=== PATIENT | female | born 1940 | race Caucasian/White ===

== ENCOUNTER 2017-01-27 10:21 | Outpatient (CLI) | payer OTHER ==
[~2017-01-27 10:21] MED LIST: AMITRIPTYLINE H25 MG PO; COUMADIN2.5 MG PO; COUMADIN5 MG PO; HIPREX1 GM PO; JANUVIA25 MG; LIPITOR40 MG PO; LOPRESSOR25 MG PO; LOTEMAX0.5 %; METFORMIN HCL500 MG PO; OMEPRAZOLE20 M1 PO; PERCOCET1 TA1 PO; REFRESH TEARS0.5 % OP; [UNRECOGNIZED DRUG - OTHER]
--- NOTE | 2017-01-27 11:01 | DIAGNOSTIC IMAGING REPORT ---
PROCEDURE: DEXA BONE DENSITY STUDY CLINICAL INDICATION: SCREENING COMPARISON: None. FINDINGS: LUMBAR SPINE: Bone mineral density 1.560 g/cm2, T score 4.7 normal LEFT HIP: Bone mineral density 1.023 g/cm2, T score 0.7 normal LEFT FEMORAL NECK: Bone mineral density 0.959 g/cm2, T score 1.0 normal FRACTURE RISK CALCULATION ( when applicable): 10-year fracture risk of a major osteoporotic fracture and of a hip fracture not reported because all T-scores at or above -1.0 (T score greater or equal to -1.0 to: NORMAL) (T score from -1.1 to -2.4: OSTEOPENIA) (T score ess than or equal to -2.5: OSTEOPOROSIS) IMPRESSION: 1. Normal spine hip and femoral neck
--- NOTE | 2017-01-27 11:19 | DIAGNOSTIC IMAGING REPORT ---
PROCEDURE: MG BILATERAL SCREENING W/CAD INDICATION: SCREENING TECHNIQUE: Standard CC and MLO views bilaterally. Computer aided detection was used. COMPARISON: 07/06/2014, 10/25/2012, 09/24/2011 FINDINGS: Dense heterogeneous fibroglandular tissue with numerous calcifications is present bilaterally. No developing densities, areas of architectural distortion, or suspicious microcalcifications. IMPRESSION: 1. Stable mammograms without radiographic evidence of malignancy. RESULT CODE: 2- Benign findings. A. A negative report should not delay biopsy if a dominant or clinically suspicious mass is present. 10-15% of cancers are not identified by x-ray. B. A negative report may reinforce clinical impression. C. Adenosis and dense breasts may obscure an underlying neoplasm. D. False positive reports average 6-10%. E.. A yearly screening mammogram is recommended. A reminder letter will be scheduled.
== END 2017-01-27 23:00 ==
LOC: MAM SRH 10:21
DX: Z13.820 Encounter for screening for osteoporosis (principal); Z12.31 Encounter for screening mammogram for malignant neoplasm of breast